=== PATIENT | female | born 1995 | race Caucasian/White ===

== ENCOUNTER 2021-02-09 03:27 | Emergency (ER) | payer BC, SELFPAY ==
[2021-02-09 03:28] VITALS: BP 90/48; PULSE 90; RESP 8; TEMP 35.9; O2SAT 100; BMI 20.3
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
[2021-02-09] MEDS: HYDROcodone Bitartrate/Apap 5/325 Tablet PO (04:51)
[2021-02-09] MEDS: Diphth,Pertuss(Acell),Tet Vac 0.5 ML Vial IM (04:54)
[2021-02-09] MEDS: BACITRACIN 15 GM Tube 1 APPLIC TOPICAL (04:56)
== END 2021-02-09 05:10 | disposition home or self-care (01) ==
LOC: ED 04:32
PROVIDERS: Emergency Provider Emergency Medicine; PCP Family Medicine
DX: T24.211A Burn of second degree of right thigh, initial encounter (principal); T21.15XA Burn of first degree of buttock, initial encounter; X03.3XXA Fall due to controlled fire, not in building or structure, initial encounter
CPT/HCPCS: 90471; 90715; 99283